=== PATIENT | female | born 1970 | race Caucasian/White ===

== ENCOUNTER 2020-01-07 07:57 | Outpatient (CLI) | payer BC, OTHER ==
[2020-01-07] MEDS ORDERED: ACYC-113 PO (08:46)
[2020-01-07] MEDS ORDERED: MULT-516 PO (08:46)
[2020-01-07] MEDS ORDERED: COLLAGEN PO (08:46)
[2020-01-07] MEDS ORDERED: VITAMIN D PO (08:46)
== END 2020-01-07 23:59 | disposition home or self-care (01) ==
LOC: STAR 07:57
PROVIDERS: ATTEND Urology
DX: Z02.9 Encounter for administrative examinations, unspecified (principal)

== ENCOUNTER 2020-01-11 07:10 | Day surgery (SDC) | payer BC ==
[~2020-01-11] VITALS: Ht 162.6 cm; Wt 73.6 kg
[~2020-01-11 07:10] MED LIST: ACYC-113 PO; BUPIVACAINE/PF-EPI 0.25% 1:200K ONE; COLLAGEN PO; GENTAMICIN 80 MG/2 ML ONE; MULT-516 PO; VANCOMYCIN 500 MG ONE; VITAMIN D PO
[2020-01-11] MEDS ORDERED: LACTATED RINGERS 1,000 ML IV SCH (07:25)
[2020-01-11] MEDS ORDERED: CHLORHEXIDINE 15 ML UDC MM ONE (07:30)
[2020-01-11 07:34] VITALS: BP 120/74
[2020-01-11] MEDS ORDERED: FENTANYL PF 250 MCG/5ML ONE (07:40)
[2020-01-11] MEDS ORDERED: MIDAZOLAM 1 MG/ML, 2ML ONE (07:40)
[2020-01-11] MEDS ORDERED: KETOROLAC 30 MG/1 ML ONE (07:43)
[2020-01-11] MEDS ORDERED: ONDANSETRON 2MG/ML, 2ML ONE (07:44)
[2020-01-11] MEDS ORDERED: GLYCOPYRROLATE 0.2MG/1ML, 5ML ONE (07:44)
[2020-01-11] MEDS ORDERED: PROPOFOL 10 MG/ML, 20ML ONE (07:44)
[2020-01-11] MEDS ORDERED: ROCURONIUM 10MG/ML,5ML ONE (07:44)
[2020-01-11] MEDS ORDERED: DEXAMETHASONE 4 MG/ML, 1ML ONE (07:44)
[2020-01-11] MEDS ORDERED: NEOSTIGMINE 1 MG/ML, 10ML ONE (07:44)
[2020-01-11] MEDS ORDERED: CEFAZOLIN 1,000 MG ONE (07:44)
[2020-01-11 07:51] LABS: HCG UR SG 1.021 (1.003-1.030)
[2020-01-11] MEDS ORDERED: HYDROmorphone 1 MG/ML, 1ML INJ IVPush PRN (09:00)
[2020-01-11] MEDS ORDERED: LABETALOL 5MG/ML, 20ML IV PRN (09:00)
[2020-01-11] MEDS ORDERED: hydrALAzine 20 MG/ML, 1ML IV PRN (09:00)
[2020-01-11] MEDS ORDERED: HALOPERIDOL 5 MG/ML IV PRN (09:00)
[2020-01-11] MEDS ORDERED: OXYcodone 5 MG/5 ML ORAL.SOL UDC PO PRN (09:00)
[2020-01-11] MEDS ORDERED: morphine SULFATE 10 MG/ML, 1ML IVPush PRN (09:00)
[2020-01-11] MEDS ORDERED: ACETAMINOPHEN 325 MG TABLET PO PRN (09:00)
[2020-01-11] MEDS ORDERED: PROMETHAZINE 25 MG/ML, 1ML IVPush PRN (09:00)
[2020-01-11] MEDS ORDERED: MEPERIDINE/PF 25MG/0.5ML IVPush PRN (09:00)
[2020-01-11] MEDS ORDERED: FENTANYL PF 100 MCG/2ML IV PRN (09:00)
[2020-01-11] MEDS ORDERED: ONDANSETRON 2MG/ML, 2ML IV PRN (10:00)
[2020-01-11] MEDS ORDERED: HYDROcodone/APAP 5/325 TABLET PO PRN (10:00)
== END 2020-01-11 12:20 | disposition home or self-care (01) ==
LOC: OUT 07:10
PROVIDERS: ATTEND Urology
DX: N39.3 Stress incontinence (female) (male) (principal); Z11.59 Encounter for screening for other viral diseases; N81.10 Cystocele, unspecified; Z79.899 Other long term (current) drug therapy
CPT/HCPCS: 36415; 57288; 81025; 87635; C1771; J0690; J1100; J1580; J1885; J2250; J2405; J2704; J3010; J3370; J7120; J2710